=== PATIENT | female | born 1945 | race Caucasian/White ===

== ENCOUNTER 2017-11-04 12:45 | Outpatient (CLI) | payer MEDICARE ==
--- NOTE | 2017-11-04 14:09 | RAD ---
LEFT KNEE 3 VIEWS: COMPARISON: None. HISTORY: Pain. FINDINGS: No joint effusion. Joint spaces are preserved. No fracture or malalignment. IMPRESSION: Unremarkable left knee 3 views. POS: [facility]
--- NOTE | 2017-11-04 14:35 | ULT ---
LEFT KNEE ULTRASOUND: HISTORY: Swelling. COMPARISON: None. TECHNIQUE: Targeted sonographic imaging of the posterior aspect of the left knee is performed. FINDINGS: Static images do not identify a Singh's cyst. IMPRESSION: No sonographic evidence of a Singh's cyst. POS: [facility]
== END 2017-11-04 12:46 | disposition home or self-care (01) ==
LOC: SCSULT 12:45
PROVIDERS: ATTEND Internal Medicine
DX: M25.562 Pain in left knee (principal); M25.862 Other specified joint disorders, left knee
CPT/HCPCS: 76999

== ENCOUNTER 2018-06-11 07:53 | Emergency (ER) | payer MEDICARE ==
--- NOTE | 2018-06-11 09:23 | RAD ---
RIGHT WRIST 3 VIEWS: Date: 06/11/18 HISTORY: Wrist pain with swelling. FINDINGS: There is chondrocalcinosis. There is calcification of the scapholunate and triangular fibrocartilage. There is no significant joint space narrowing. Bones are demineralized. No fractures. IMPRESSION: Chondrocalcinosis. No acute changes. POS: [facility]
== END 2018-06-11 09:11 | disposition home or self-care (01) ==
LOC: SCSER 07:53
DX: M11.231 Other chondrocalcinosis, right wrist (principal); E78.5 Hyperlipidemia, unspecified; I10 Essential (primary) hypertension; F17.210 Nicotine dependence, cigarettes, uncomplicated; K50.90 Crohn's disease, unspecified, without complications; Z79.899 Other long term (current) drug therapy; Z71.6 Tobacco abuse counseling
CPT/HCPCS: 99406